=== PATIENT | female | born 1980 | race African-American/Black ===

== ENCOUNTER 2017-01-19 10:49 | Emergency (ER) | payer OTHER ==
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
[~2017-01-19 10:49] MED LIST: BACTRIM DS TABL1 TA1 PO; KEFLEX500 MG PO; LORTAB 5/500 TA1 TA1 PO
== END 2017-01-19 10:57 | disposition home or self-care (01) ==
LOC: CFTX 10:49
DX: S46.811A Strain of other muscles, fascia and tendons at shoulder and upper arm level, right arm, initial encounter (principal); S13.4XXA Sprain of ligaments of cervical spine, initial encounter; S23.3XXA Sprain of ligaments of thoracic spine, initial encounter; V43.52XA Car driver injured in collision with other type car in traffic accident, initial encounter; Y92.410 Unspecified street and highway as the place of occurrence of the external cause
CPT/HCPCS: 72040; 72072; 73030; 99284